=== PATIENT | male | born 1980 | race Hispanic/Latino ===

== ENCOUNTER 2016-10-17 23:18 | Inpatient (IN) | payer MEDICAID ==
[2016-10-18 01:29] LABS: BASO # 0.1 K/uL (0.0-0.2); BASO % 0.5 % (0.0-2.0); EOS # 0.2 K/uL (0.0-0.7); EOS % 1.6 % (0.0-4.0); LYMPH # 2.9 K/uL (1.0-4.3); LYMPH % 24.7 % (20.0-40.0); MEAN CELL VOLUME 88.2 fL (80.0-94.0); MEAN CORPUSCULAR HEMOGLOBIN 28.4 pg (27.0-31.0); MEAN CORPUSCULAR HGB CONC 32.2 g/dL (33.0-37.0); MEAN PLATELET VOLUME 7.2 fL (7.2-11.7); MONO # 0.6 K/uL (0.0-0.8); NRBC % 0.1 % (0.0-2.0); RED CELL DISTRIBUTION WIDTH 13.4 % (11.5-14.5); WHITE BLOOD COUNT 11.6 K/uL (4.8-10.8)
--- NOTE | 2016-10-18 01:39 | C.PDOC ---
Time Seen by Provider: 10/18/16 00:15 Chief Complaint (Nursing): Psychiatric Evaluation History Per: Patient Onset/Duration Of Symptoms: Days Current Symptoms Are (Timing): Still Present Suicide/Self Injury Attempted (Context): None Modifying Factor(s): Narcotics, Cocaine Severity: Moderate Associated Symptoms: Depression, Suicidal Thoughts Additional History Per: Prior Records Past Medical History Reviewed: Historical Data, Nursing Documentation, Vital Signs Vital Signs: Last Vital Signs Temp 97.8 F 10/17/16 23:35 Pulse 87 10/17/16 23:35 Resp 20 10/17/16 23:35 BP 123/80 10/17/16 23:35 Pulse Ox 100 10/18/16 01:39 - Medical History PMH: Anxiety Surgical History: Back Surgery Family History: States: Unknown Family Hx - Social History Hx Tobacco Use: Yes Hx Alcohol Use: No Hx Substance Use: Yes (IVDU Heroin) - Immunization History Hx Tetanus Toxoid Vaccination: No Hx Influenza Vaccination: No Hx Pneumococcal Vaccination: No Review Of Systems Except As Marked, All Systems Reviewed And Found Negative. Constitutional: Negative for: Fever, Weakness Cardiovascular: Negative for: Chest Pain Respiratory: Negative for: Shortness of Breath Gastrointestinal: Negative for: Vomiting, Abdominal Pain Musculoskeletal: Negative for: Neck Pain Neurological: Negative for: Weakness, Numbness, Seizures Physical Exam - Physical Exam Appears: Non-toxic, No Acute Distress Skin: Normal Color, Warm, Dry Head: Atraumatic, Normacephalic Eye(s): bilateral: PERRL, EOMI Neck: Normal ROM, Supple Cardiovascular: Rhythm Regular Respiratory: Normal Breath Sounds, No Accessory Muscle Use Gastrointestinal/Abdominal: Soft, No Tenderness Back: No CVA Tenderness Extremity: Normal ROM, Other (Track barnard on arms) Neurological/Psych: Oriented x3, Normal Motor, Normal Sensation ED Course And Treatment - Laboratory Results Result Diagrams: 10/18/16 01:23 10/18/16 01:23 O2 Sat by Pulse Oximetry: 100 Pulse Ox Interpretation: Normal Progress Note: Pt is medically stable for psychiatric admission. Disposition Counseled Patient/Family Regarding: Studies Performed, Diagnosis - Disposition Disposition: HOSPITALIZED Disposition Time: 01:51 Condition: STABLE - Clinical Impression Clinical Impression: Depression, Drug abuse Decision To Admit - Pt Status Changed To: Hospital Disposition Of: Inpatient - Admit Certification Admit to Inpatient:: After my assessment, the patient will require hospitalization for at least two midnights. This is because of the severity of symptoms shown, intensity of services needed, and/or the medical risk in this patient being treated as an outpatient. - InPatient: Physician Admission Certification: I certify that this patient requires 2 or more midnights of care for the following reason:: Psych - . Bed Request Type: Psychiatry Admitting Physician: Lincoln Batista Patient Diagnosis: Depression, Drug abuse
[2016-10-18 01:47] LABS: CHLORIDE 99 mmol/L (98-107); POTASSIUM 3.6 mmol/L (3.6-5.2); SODIUM 144 mmol/L (132-148)
[2016-10-18 01:48] LABS: ALB/GLOB RATIO 1.1 (1.0-2.1); ALCOHOL SERUM < 10 mg/dl (0-10); ALKALINE PHOSPHATASE 72 U/L (38-126); ALT/SGPT 43 U/L (21-72); AST/SGOT 35 U/L (17-59); BILIRUBIN,TOTAL 0.6 mg/dL (0.2-1.3); BLOOD UREA NITROGEN 9 mg/dL (9-20); CALCIUM 8.9 mg/dl (8.6-10.4); CARBON DIOXIDE 31 mmol/L (22-30); GFR AFRICAN-AMERICAN > 60; GLUCOSE,RANDOM 118 mg/dL (75-110)
[2016-10-18 02:38] LABS: RBC URINE 1 /hpf (0-3); URINE BILIRUBIN NEGATIVE (NEGATIVE); URINE BLOOD NEGATIVE (NEGATIVE); URINE COLOR Yellow (YELLOW); URINE GLUCOSE (UA) NORMAL (Normal); URINE KETONE NEGATIVE (NEGATIVE); URINE LEUKOCYTE ESTERASE NEG Leu/uL (Negative); URINE PROTEIN NEGATIVE (NEGATIVE); URINE UROBILINOGEN NORMAL mg/dL (0.2-1.0); WBC URINE 1 /hpf (0-5)
[2016-10-18 03:25] VITALS: O2SAT 97
[2016-10-18] MEDS ORDERED: Aluminum Hydroxide/Magnesium Hydroxide Susp (30 mL) PO PRN (04:40)
--- NOTE | 2016-10-18 15:21 | PCM.PSYCH ---
Initial Psychiatric Evaluation - Initial Psychiatric Evaluation Type of Admission: Voluntary Legal Status: Capacity Chief Complaint (in patient's own words): "For the last 4 days I have had thoughts of hurting myself" History of Present Illness and Precipitating Events: Pt. is a 34 y/o M, , 2 children, unemployed, and homeless w/ PMHx of chronic back pain, and a past psych hx of opioid use disorder. Pt. admits to using 20 bags of heroin daily for the past 4 years. Pt's last use was yesterday in the afternoon. Pt. reports having detoxed (w/ suboxone taper) once before, and having participated in a rehab program once before. This is the Pt's first psych hospitalization. Pt. denies any FHx of psychiatric or medical diagnoses. Pt. denies FHx of substance abuse. Pt. was seen in bed b/c of withdrawal symptoms. Pt. c/o diaphoresis, back pain, body aches, and abdominal discomfort. Pt. denies suicidal ideation right now. Pt. denies hallucinations and delusions. Current Medications: Active Medications Generic Name Dose Route Start Last Admin Trade Name Freq PRN Reason Stop Dose Admin Acetaminophen 650 mg 10/18/16 04:38 Tylenol 325mg Tab PO Q6 PRN Fever >100.4 F Al Hydrox/Mg Hydrox/Simethicone 30 ml 10/18/16 04:40 Maalox 30 Ml PO TID PRN Indigestion / Heartburn Clonidine HCl 0.1 mg 10/18/16 04:40 Catapres PO Q8 PRN COWS Score More or Equal to 5 Diphenhydramine HCl 50 mg 10/18/16 04:38 Benadryl PO Q6 PRN Extra Pyramidal Symptoms Haloperidol 5 mg 10/18/16 04:38 Haldol PO Q8 PRN Moderate Agitation Haloperidol Lactate 5 mg 10/18/16 04:38 Haldol IM Q8 PRN Moderate Agitation Loperamide HCl 2 mg 10/18/16 04:40 Imodium PO Q8 PRN Diarrhea Methadone HCl 5 mg 10/19/16 10:00 Methadone PO 10/23/16 09:59 DAILY LISBETH Taper Methadone HCl 5 mg 10/18/16 18:00 Methadone PO 10/18/16 18:01 ONCE ONE Nicotine 1 patch 10/18/16 12:15 Nicoderm Cq TD DAILY LISBETH Ondansetron HCl 4 mg 10/18/16 04:38 Zofran Tab PO Q8H PRN Nausea/Vomiting Trazodone HCl 50 mg 10/18/16 22:00 Desyrel PO HS LISBETH Past Psychiatric History - Past Psychiatric History Pertinent Medical Hx (Current Medical&Sleep Prob, Allergies): Allergies Allergy/AdvReac Type Severity Reaction Status Date / Time No Known Allergies Allergy Verified 10/17/16 23:40 ALPRAZolam [Xanax] 1 mg PO BID 10/17/16 Dextroamphetamine/Amphetamine [Adderall 20 mg Tablet] 20 mg PO BID 10/17/16 oxyCODONE [oxyCODONE Immediate Release Tab] 30 mg PO BID 10/17/16 Review of Systems - Psychiatric Psychiatric: absent: Hallucinations, Suicidal Ideation Mental Status Examination - Personal Presentation Personal Presentation: Looks stated age - Affect Affect: Constricted - Motor Activity Motor Activity: Calm - Reliability in Providing Information Reliability in Providing Information: Good - Speech Speech: Organized, Relevant - Mood Mood: Depressed, Anxious - Formal Thought Process Formal Thought Process: No Impairment - Obsessions/Compulsions Obsessions: No Compulsions: No - Cognitive Functions Orientation: Person, Place, Situation, Time Sensorium: Alert Attention/Concentration: Attentive Judgement: Intact, as evidence by: Insight regarding need for hospitalization Memory: Recent intact, as evidence by: Ability to recall events of the day, Remote intact, as evidenced by: Abilit to recall sig. 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 33 min Projected ELOS: 5 days Prognosis: good w tx - Smoking Cessation Smoking Cessation Initiated: Yes
[2016-10-19 09:46] VITALS: BP 107/64; PULSE 78; RESP 19; TEMP 97.6
--- NOTE | 2016-10-19 12:47 | PCM.PYCHDC ---
Mental Status Examination - Mental Status Examination Orientation: Person, Place, Situation, Time Memory: Intact Mood: Anxious Affect: Depressed Speech: Appropriate Attention: Poor Concentration: WNL Association: WNL Fund of Knowledge: Poor Formal Thought Process: No Impairment Suicidal Ideation: No Current Homicidal Ideation?: No Discharge Summary - Discharge Note Reason for Hospitalization: Depressive d/o - unspecified Opioid withdrawal r/o Opioid-induced depressive disorder Opioid use disorder - severe Consultations:: List each consultation separately and include: 1. Reason for request. 2. Findings. 3. Follow-up Summary of Hospital Course include:: 1. Description of specific treatment plan utilized for patients during their course of treatmen. 2. Summarize the time- course for resolution of acute symptoms and/or regressed behaviors. 3. Describe issues identified and worked on during hospitalization. 4. Describe medication utilized. 5. Describe medical problems identified and treated. 6. Reassessment of suicide risk Summary of Hospital Course: Pt. is a 34 y/o M, , 2 children, unemployed, and homeless On admission: He has PMHx of chronic back pain, and a past psych hx of opioid use disorder. Pt. admits to using 20 bags of heroin daily for the past 4 years. Pt's last use was yesterday in the afternoon. Pt. reports having detoxed (w/ suboxone taper) once before, and having participated in a rehab program once before. This is the Pt's first psych hospitalization. Pt. denies any FHx of psychiatric or medical diagnoses. Pt. denies FHx of substance abuse. Pt. was seen in bed b/c of withdrawal symptoms. Pt. c/o diaphoresis, back pain, body aches, and abdominal discomfort. Pt. denies suicidal ideation right now. Pt. denies hallucinations and delusions. Hospital course: The pt is seen, chart reviewed, case discussed. Pt is complaining of backpain and withdrawal symptoms. Pt admits to sweating. He stated that he plans on leaving today because, "this is not working for me." Pt was counseled on treatment and on the importance of staying. Pt plan is to enter methadone program. Aftercare discussed, support and psychoeducation given. He did not change his mind despite having given more than our average methadone for detox, that is legally possible, ie 40 mg/d on , 30 mg (planned) for today. He regretted not going to detox as he believes somehow buprenorphine would be more effective. He may be a fast metabolizer and it is not more likely sbx would be better. TX/CBT used He still left AMA - risks of leaving in the middle of detox discussed incl. relapse, OD and even , and he understood. - Final Diagnosis (DSM 5) Condition upon Discharge: FAIR DSM 5: Depressive d/o - unspecified Opioid withdrawal Opioid use d/o - severe Disposition: AGAINST MEDICAL ADVICE Follow-up Treatment Plan: Support and psychoeducation given Counseled on importance of treatment and what is best for the patient Use relapse prevention skills Attend NA meetings BUT most importantly go to a methaodne clinic [facility] - he agreed. Return to ER if experience Suicidal ideation, homicidal ideation, agitation - Smoking Cessation Smoking Cessation Medication prescribed: No - Antipsychotic Medications Pt discharged on 2 or more routine antipsychotic medications: No
== END 2016-10-19 13:45 | disposition left against medical advice (07) | DRG 743 ==
LOC: C.ER 23:18 → C.5E 10-18 01:52
PROVIDERS: ADMIT Psychiatry & Neurology Psychiatry; ATTEND Psychiatry & Neurology Psychiatry
PROC: HZ2ZZZZ Detoxification Services for Substance Abuse Treatment (ICD-10-PCS; principal; 2016-10-18)
PROC: HZ91ZZZ Pharmacotherapy for Substance Abuse Treatment, Methadone Maintenance (ICD-10-PCS; 2016-10-18)
DX: F11.94 Opioid use, unspecified with opioid-induced mood disorder (principal); F11.23 Opioid dependence with withdrawal; F32.9 Major depressive disorder, single episode, unspecified; F10.10 Alcohol abuse, uncomplicated; Z72.0 Tobacco use; Z59.0 Homelessness

== ENCOUNTER 2017-02-01 14:43 | Emergency (ER) | payer MEDICAID ==
[2017-02-01 14:56] VITALS: BMI 28.5
[2017-02-01 16:07] LABS: BASO % 0.5 % (0.0-2.0); EOS # 0.6 K/uL (0.0-0.7); EOS % 8.4 % (0.0-4.0); HEMOGLOBIN 13.7 g/dL (12.0-18.0); LYMPH # 2.3 K/uL (1.0-4.3); LYMPH % 31.5 % (20.0-40.0); MEAN CELL VOLUME 85.5 fL (80.0-94.0); MEAN CORPUSCULAR HEMOGLOBIN 29.6 pg (27.0-31.0); MEAN CORPUSCULAR HGB CONC 34.6 g/dL (33.0-37.0); MEAN PLATELET VOLUME 7.4 fL (7.2-11.7); MONO # 0.6 K/uL (0.0-0.8); MONO % 8.4 % (0.0-10.0); NEUT # 3.8 K/uL (1.8-7.0); NEUT % 51.2 % (50.0-75.0); RBC 4.65 Mil/uL (4.40-5.90); RED CELL DISTRIBUTION WIDTH 13.6 % (11.5-14.5); WHITE BLOOD COUNT 7.3 K/uL (4.8-10.8)
[2017-02-01 16:19] LABS: ALBUMIN 4.2 g/dL (3.5-5.0)
[2017-02-01 16:22] LABS: ALB/GLOB RATIO 1.1 (1.0-2.1); ALT/SGPT 169 U/L (21-72); AST/SGOT 105 U/L (17-59); BLOOD UREA NITROGEN 12 mg/dL (9-20); GFR AFRICAN-AMERICAN > 60; GFR NON-AFRICAN AMERICAN > 60
[2017-02-01 16:23] LABS: CALCIUM 9.1 mg/dl (8.6-10.4)
[2017-02-01 17:17] VITALS: BP 123/78; PULSE 61; RESP 20; TEMP 98.7; O2SAT 100
[2017-02-01 17:53] LABS: SQUAMOUS EPITHIAL < 1 /hpf (0-5); URINE BILIRUBIN NEGATIVE (NEGATIVE); URINE BLOOD NEGATIVE (NEGATIVE); URINE CLARITY Clear (Clear); URINE COLOR Yellow (YELLOW); URINE GLUCOSE (UA) NORMAL (Normal); URINE LEUKOCYTE ESTERASE NEG Leu/uL (Negative); URINE NITRATE NEGATIVE (NEGATIVE); URINE PROTEIN NEGATIVE (NEGATIVE); URINE UROBILINOGEN NORMAL mg/dL (0.2-1.0)
[2017-02-01 18:02] LABS: BARBITURATES, UR NEGATIVE (NEGATIVE)
[2017-02-01 18:03] LABS: BENZODIAZEPINES, UR NEGATIVE (NEGATIVE)
[2017-02-01 18:05] LABS: OPIATES, UR POSITIVE (NEGATIVE)
[2017-02-01 18:06] LABS: PHENCYCLIDINE, UR NEGATIVE (NEGATIVE)
--- NOTE | 2017-02-01 18:06 | C.PDOC ---
History Of Present Illness Patient is a 36 y/o male presents to the ED requesting heroin detox. Notes he uses heroin intravenously. (+)SI. Otherwise, denies any HI, chest pain, shortness of breath, headache, fever, chills, cough, nausea, vomiting, diarrhea , abdominal pain, dizziness, lightheadedness, or any other physical complaints at this time. Time Seen by Provider: 02/01/17 15:03 Chief Complaint (Nursing): Psychiatric Evaluation History Per: Patient History/Exam Limitations: no limitations Onset/Duration Of Symptoms: Gradual Current Symptoms Are (Timing): Still Present Suicide/Self Injury Attempted (Context): None Modifying Factor(s): Other (heroin) Severity: None Pain Scale Rating Of: 0 Associated Symptoms: Suicidal Thoughts. denies: Suicidal Plan Involuntary Hold By: None Recent travel outside of the [place]: No Additional History Per: Patient Past Medical History Reviewed: Historical Data, Nursing Documentation, Vital Signs Vital Signs: Last Vital Signs Temp 98.7 F 02/01/17 17:16 Pulse 61 02/01/17 17:16 Resp 20 02/01/17 17:16 BP 123/78 02/01/17 17:16 Pulse Ox 100 02/01/17 18:55 - Medical History PMH: Anxiety Denies: Diabetes, Hepatitis, HIV, HTN, Chronic Kidney Disease, Seizures, Sexually Transmitted Disease Surgical History: Back Surgery - [facility] Procedures DETOXIFICATION SERVICES FOR SUBSTANCE ABUSE TREATMENT (10/18/16) PHARMACOTHERAPY FOR SUBSTANCE ABUSE, METHADONE MAINT (10/18/16) Family History: States: Unknown Family Hx - Social History Hx Tobacco Use: Yes Hx Alcohol Use: Yes Hx Substance Use: Yes - Immunization History Hx Tetanus Toxoid Vaccination: No Hx Influenza Vaccination: No Hx Pneumococcal Vaccination: No Review Of Systems Except As Marked, All Systems Reviewed And Found Negative. Constitutional: Negative for: Fever, Chills Cardiovascular: Negative for: Chest Pain, Palpitations Respiratory: Negative for: Shortness of Breath Gastrointestinal: Negative for: Nausea, Vomiting, Abdominal Pain Musculoskeletal: Negative for: Neck Pain Neurological: Negative for: Headache, Dizziness Psych: Positive for: Suicidal ideation Physical Exam - Physical Exam Appears: Non-toxic, No Acute Distress Skin: Warm, Dry, Other (track barnard to upper extremities; mild erythema to dorsum of right hand, no warmth, no streaking) Head: Atraumatic, Normacephalic Eye(s): bilateral: Normal Inspection Oral Mucosa: Moist Neck: Normal ROM, Supple Cardiovascular: Rhythm Regular, No Murmur Respiratory: Normal Breath Sounds, No Rales, No Rhonchi, No Wheezing Extremity: Normal ROM, No Tenderness (no tenderness to right hand), Capillary Refill (< 2 sec.), No Deformity, No Swelling Pulses: Left Radial: Normal, Right Radial: Normal Neurological/Psych: Oriented x3, Normal Speech, Normal Motor, Normal Sensation ED Course And Treatment - Laboratory Results Result Diagrams: 02/01/17 16:03 02/01/17 16:03 O2 Sat by Pulse Oximetry: 100 (RA) Pulse Ox Interpretation: Normal Progress Note: Blood work, urinalysis ordered and reviewed. Patient was evaluated by photographic process worker. On ree-valuation , pt denies SI. set up worker Linda spoke to pt. Notes pt is cleared for discharge. Does not meet admission criteria. HAs outpt psychiatrist. Instructed outpt detox. Pt left prior to re- evaluation and discharge. Disposition - Disposition Disposition: HOME/ ROUTINE Disposition Time: 18:53 Condition: STABLE Additional Instructions: Follow up with your primary medical doctor or clinic in 2-5 days for further evaluation. Return to the emergency department at any time if symptoms persist or worsen. Instructions: Opioid Dependence (ED) Forms: [employer] (Turkish) - Clinical Impression Clinical Impression: Opioid dependence - PA / [employer] / Resident Statement MD/DO has reviewed & agrees with the documentation as recorded. - Scribe Statement The provider has reviewed the documentation as recorded by the Scribe Flavio Forrester All medical record entries made by the Scribe were at my direction and personally dictated by me. I have reviewed the chart and agree that the record accurately reflects my personal performance of the history, physical exam, medical decision making, and the department course for this patient. I have also personally directed, reviewed, and agree with the discharge instructions and disposition.
== END 2017-02-01 18:50 | disposition home or self-care (01) ==
LOC: C.ER 14:43
DX: F11.20 Opioid dependence, uncomplicated (principal)

== ENCOUNTER 2017-02-02 03:29 | Emergency (ER) | payer MEDICAID ==
[2017-02-02 03:30] VITALS: BMI 28.5
--- NOTE | 2017-02-02 03:40 | C.PDOC ---
History Of Present Illness Patient was brought in by EMS for bizarre behavior. Patient was stating that the government was after him; denies SI or HI. Patient was initially agitated and combative; he attempted to run from the ER requiring 4 point restaints. Eventually patient became cooperative with all evaluations that needed to be done by myself and the glassworker. Time Seen by Provider: 02/02/17 03:39 History Per: EMS History/Exam Limitations: no limitations Onset/Duration Of Symptoms: Hrs Current Symptoms Are (Timing): Still Present Suicide/Self Injury Attempted (Context): None Modifying Factor(s): None Severity: None Pain Scale Rating Of: 0 Associated Symptoms: Paranoia. denies: Depression, Suicidal Thoughts, Suicidal Plan Recent travel outside of the [place]: No Past Medical History Reviewed: Historical Data, Nursing Documentation, Vital Signs Vital Signs: Last Vital Signs Temp 98.8 F 02/02/17 03:40 Pulse 86 02/02/17 03:40 Resp 18 02/02/17 03:40 BP 133/88 02/02/17 03:40 Pulse Ox 98 02/02/17 03:40 - Medical History PMH: Anxiety Surgical History: Back Surgery - [facility] Procedures DETOXIFICATION SERVICES FOR SUBSTANCE ABUSE TREATMENT (10/18/16) PHARMACOTHERAPY FOR SUBSTANCE ABUSE, METHADONE MAINT (10/18/16) Family History: States: No Known Family Hx - Social History Hx Tobacco Use: Yes Hx Alcohol Use: Yes Hx Substance Use: Yes - Immunization History Hx Tetanus Toxoid Vaccination: No Hx Influenza Vaccination: No Hx Pneumococcal Vaccination: No Review Of Systems Constitutional: Negative for: Fever, Chills Gastrointestinal: Negative for: Nausea, Vomiting, Diarrhea Psych: Positive for: Other (Paranoia). Negative for: Suicidal ideation Physical Exam - Physical Exam Appears: Non-toxic, No Acute Distress Skin: Warm, Dry Oral Mucosa: Moist Chest: Symmetrical, No Tenderness Cardiovascular: Rhythm Regular, No Murmur Respiratory: No Rales, No Rhonchi, No Wheezing Gastrointestinal/Abdominal: Soft, No Tenderness Neurological/Psych: Oriented x3 ED Course And Treatment - Laboratory Results Result Diagrams: 02/02/17 04:11 02/02/17 04:11 Progress Note: Blood work and urinalysis ordered. Disposition Counseled Patient/Family Regarding: Studies Performed, Diagnosis, Need For Followup - Disposition Referrals: [facility] [Outside] Disposition: HOME/ ROUTINE Disposition Time: 03:40 Condition: FAIR Instructions: Hypokalemia (DC), Depression (DC), Anxiety (ED) - Clinical Impression Clinical Impression: Depression, Anxiety, Hypokalemia - Scribe Statement The provider has reviewed the documentation as recorded by the Scribdestiny Leo All medical record entries made by the Mavisibdestiny were at my direction and personally dictated by me. I have reviewed the chart and agree that the record accurately reflects my personal performance of the history, physical exam, medical decision making, and the department course for this patient. I have also personally directed, reviewed, and agree with the discharge instructions and disposition.
[2017-02-02] MEDS ORDERED: DiphenhydrAMINE 50 mg/ml Inj IM STA (03:59)
[2017-02-02 04:15] LABS: BASO % 0.5 % (0.0-2.0); EOS # 0.4 K/uL (0.0-0.7); EOS % 5.7 % (0.0-4.0); HEMOGLOBIN 13.4 g/dL (12.0-18.0); LYMPH # 2.2 K/uL (1.0-4.3); LYMPH % 29.8 % (20.0-40.0); MEAN CELL VOLUME 85.2 fL (80.0-94.0); MEAN CORPUSCULAR HEMOGLOBIN 29.2 pg (27.0-31.0); MEAN CORPUSCULAR HGB CONC 34.3 g/dL (33.0-37.0); MEAN PLATELET VOLUME 6.9 fL (7.2-11.7); MONO # 0.6 K/uL (0.0-0.8); MONO % 7.4 % (0.0-10.0); NEUT # 4.2 K/uL (1.8-7.0); NEUT % 56.6 % (50.0-75.0); RBC 4.58 Mil/uL (4.40-5.90); RED CELL DISTRIBUTION WIDTH 13.5 % (11.5-14.5); WHITE BLOOD COUNT 7.5 K/uL (4.8-10.8)
[2017-02-02 04:21] LABS: ALBUMIN 4.1 g/dL (3.5-5.0)
[2017-02-02 04:24] LABS: ALB/GLOB RATIO 1.1 (1.0-2.1); ALT/SGPT 154 U/L (21-72); AST/SGOT 100 U/L (17-59); BLOOD UREA NITROGEN 12 mg/dL (9-20); GFR AFRICAN-AMERICAN > 60; GFR NON-AFRICAN AMERICAN > 60
[2017-02-02] MEDS ORDERED: DiphenhydrAMINE 50 mg/ml Inj ONE (04:40)
[2017-02-02] MEDS ORDERED: Potassium Chloride 10 mEq ER Tab PO STA (05:19)
[2017-02-02] MEDS ORDERED: Potassium Chloride 10 mEq ER Tab PO ONE (05:24)
[2017-02-02 05:31] VITALS: BP 120/64; PULSE 80; RESP 20; TEMP 98.5; O2SAT 99
== END 2017-02-02 05:40 | disposition home or self-care (01) ==
LOC: C.ER 03:29
DX: E87.6 Hypokalemia (principal); F41.9 Anxiety disorder, unspecified; F32.9 Major depressive disorder, single episode, unspecified